=== PATIENT | male | born 1940 | race Hispanic/Latino ===

== ENCOUNTER → 2020-05-04 | Day surgery (SDC) | payer MEDICARE ==
[2020-05-01 14:18] LABS: BASOPHILS # (AUTO) 0.1 (0.0-0.1); BASOPHILS % 2.8 % (0.0-1.0); EOSINOPHILS # (AUTO) 0.1 (0.0-0.4); EOSINOPHILS % 2.6 % (0.0-6.0); HEMATOCRIT 30.4 % (38.2-49.6); LYMPHOCYTES # (AUTO) 1.3 (1.0-3.2); LYMPHOCYTES % 28.8 % (18.0-39.1); MEAN CORPUSCULAR HEMOGLOBIN 20.4 pg (28-32); MEAN CORPUSCULAR HGB CONC 29.6 g/dL (31-35); MEAN CORPUSCULAR VOLUME 68.9 fL (81-99); MONOCYTES # (AUTO) 0.7 (0.2-0.8); MONOCYTES % 15.3 % (4.4-11.3); NEUTROPHILS # (AUTO) 2.3 (2.1-6.9); NEUTROPHILS % 50.3 % (38.7-80.0); PLATELET COUNT 177 x10e3/uL (140-360); RED BLOOD COUNT 4.41 x10e6/uL (4.3-5.7); RED CELL DISTRIBUTION WIDTH 22.4 % (11.7-14.4)
[~2020-05-04] MED LIST: AMIODARONE HCL200 MG PO; AMLODIPINE BESY10 MG PO; ASPIRIN81 MG PO; COREG6.25 MG PO; HYDROCHLOROTH12.5 MG PO; LIDOCAINE HCL 2% LOCAL INJ 5 ML SDV VIAL INJ ONE; LISINOPRIL40 MG PO; METFORMIN HCL850 MG PO; OMEPRAZOLE40 MG PO; PLAVIX75 MG PO; PRAVACHOL40 MG PO; PROPOFOL IV EMULSION 10 MG/ML 20 ML VIAL ONE; TIMOPTIC 0.25%1 EACH OU; VENOFER100 MG/5 M PO; VITAMIN D310 MCG PO
[2020-05-04 09:22] VITALS: BP 117/56
== END | disposition home or self-care (01) ==
LOC: OR 06:31
PROVIDERS: ATTEND Internal Medicine Gastroenterology
DX: D50.0 Iron deficiency anemia secondary to blood loss (chronic) (principal); D12.2 Benign neoplasm of ascending colon; D12.5 Benign neoplasm of sigmoid colon; K29.50 Unspecified chronic gastritis without bleeding; K25.9 Gastric ulcer, unspecified as acute or chronic, without hemorrhage or perforation; K55.20 Angiodysplasia of colon without hemorrhage; K44.9 Diaphragmatic hernia without obstruction or gangrene; K21.00 Gastro-esophageal reflux disease with esophagitis, without bleeding; K64.8 Other hemorrhoids; Z71.3 Dietary counseling and surveillance; E66.3 Overweight; I48.91 Unspecified atrial fibrillation; I25.810 Atherosclerosis of coronary artery bypass graft(s) without angina pectoris; I10 Essential (primary) hypertension; E11.9 Type 2 diabetes mellitus without complications; Z01.812 Encounter for preprocedural laboratory examination; Z20.822 Contact with and (suspected) exposure to COVID-19; Z79.84 Long term (current) use of oral hypoglycemic drugs; Z68.28 Body mass index [BMI] 28.0-28.9, adult; Z95.1 Presence of aortocoronary bypass graft; Z95.5 Presence of coronary angioplasty implant and graft; Z87.891 Personal history of nicotine dependence; Z80.0 Family history of malignant neoplasm of digestive organs
CPT/HCPCS: 36415 ×2; 43239; 45385; 82948; 85025; J2001; J2704; U0002

== ENCOUNTER 2023-11-30 10:30 | Inpatient (IN) | payer MEDICARE ==
[~2023-11-30] VITALS: Ht 185.4 cm; Wt 86.7 kg
[~2023-11-30 10:30] MED LIST changes: +AUGMENTIN PO; -LIDOCAINE HCL 2% LOCAL INJ 5 ML SDV VIAL INJ ONE; -PROPOFOL IV EMULSION 10 MG/ML 20 ML VIAL ONE
[2023-11-30 11:06] VITALS: TEMP 97.9
[2023-11-30 11:21] LABS: BASOPHILS % 0.5 % (0.0-1.0); EOSINOPHILS % 0.2 % (0.0-6.0); HEMATOCRIT 37.4 % (38.2-49.6); HEMOGLOBIN 12.3 g/dL (14.0-18.0); LYMPHOCYTES # (AUTO) 0.7 (1.0-3.2); LYMPHOCYTES % 10.6 % (18.0-39.1); MEAN CORPUSCULAR HEMOGLOBIN 30.3 pg (28-32); MEAN CORPUSCULAR HGB CONC 32.9 g/dL (31-35); MEAN CORPUSCULAR VOLUME 92.1 fL (81-99); MONOCYTES # (AUTO) 0.7 (0.2-0.8); NEUTROPHILS # (AUTO) 5.1 (2.1-6.9); NEUTROPHILS % 77.8 % (38.7-80.0); PLATELET COUNT 135 x10e3/uL (140-360); RED BLOOD COUNT 4.06 x10e6/uL (4.3-5.7); RED CELL DISTRIBUTION WIDTH 13.9 % (11.7-14.4); WHITE BLOOD COUNT 6.49 x10e3/uL (4.8-10.8)
[2023-11-30 11:30] LABS: INR 1.07; PARTIAL THROMBOPLASTIN TIME 26.3 seconds (23.8-35.5); PROTHROMBIN TIME 14.4 seconds (11.9-14.5)
[2023-11-30 11:42] LABS: ALBUMIN 3.5 g/dL (3.5-5.0); ALBUMIN/GLOBULIN RATIO 1.1 (0.8-2.0); ANION GAP 14.1 mmol/L (8-16); BILIRUBIN,TOTAL 0.8 mg/dL (0.2-1.2); CALCIUM 8.6 mg/dL (8.4-10.2); CREATININE, SERUM 1.34 mg/dL (0.72-1.25); POTASSIUM 4.1 mmol/L (3.5-5.1); TOTAL PROTEIN 6.6 g/dL (6.5-8.1)
[2023-11-30 11:43] LABS: MAGNESIUM 1.8 MG/DL (1.3-2.1)
[2023-11-30 11:47] LABS: BILIRUBIN,URINE NEGATIVE (NEGATIVE); CLARITY,URINE HAZY (CLEAR); COLOR,URINE YELLOW (YELLOW); GLUCOSE, URINE NEGATIVE (NEGATIVE); KETONES,URINE NEGATIVE (NEGATIVE); LEUKOCYTE ESTERASE ,URINE NEGATIVE (NEGATIVE); NITRITE,URINE NEGATIVE (NEGATIVE); PH,URINE 6 (5 - 7); PROTEIN,URINE DIPSTICK TRACE (NEGATIVE); URINE UROBILINOGEN 1 mg/dL (0.2 - 1)
[2023-11-30 11:48] LABS: RBC,URINE 0-5 /HPF (0-5); WBC,URINE (MAN) 0-5 /HPF (0-5)
[2023-11-30 11:49] LABS: BACTERIA,URINE FEW /HPF; EPITHELIAL CELLS,URINE FEW /LPF
[2023-11-30 11:50] LABS: TROPONIN I 0.007 ng/mL (0-0.300)
[2023-11-30] MEDS ORDERED: IOPAMIDOL 370 MG/ML 100 ML INFUS..BTL INJ ONE (12:00)
[2023-11-30 12:22] LABS: SODIUM,URINE < 20 mmol/L
[2023-11-30] MEDS: SODIUM CHLORIDE 0.9% 1000ML 1,000 ML IV SCH (12:57)
[2023-11-30] MEDS ORDERED: ONDANSETRON HCL INJ 2MG/ML 2ML 2 MG/ML VIAL IV PRN (14:30)
[2023-11-30] MEDS: SODIUM CHLORIDE 0.9% 1000ML 1,000 ML IV ONE (15:30)
[2023-11-30 21:27] LABS: TROPONIN I 0.006 ng/mL (0-0.300)
[2023-11-30 21:32] VITALS: PULSE 42; RESP 16
[2023-11-30 21:36] VITALS: BP 133/60; PULSE 56; RESP 20; TEMP 97.5; O2SAT 99
[2023-11-30] MEDS ORDERED: METOPROLOL TART50 MG PO (22:02)
[2023-11-30 22:13] VITALS: BP 133/60; PULSE 56; RESP 20; TEMP 97.5; O2SAT 99
[2023-11-30 22:25] VITALS: BP 133/60; PULSE 56; RESP 20; TEMP 97.5; O2SAT 99
[2023-11-30] MEDS: TRAMADOL HCL 50 MG TAB PO PRN (22:53)
[2023-12-01 00:18] VITALS: BP 150/64; PULSE 62; RESP 18; TEMP 97.7; O2SAT 99
[2023-12-01 04:00] VITALS: BP 123/66; PULSE 70; RESP 20; TEMP 98.1; O2SAT 98
[2023-12-01 05:30] LABS: BASOPHILS % 0.6 % (0.0-1.0); EOSINOPHILS % 0.6 % (0.0-6.0); HEMATOCRIT 33.1 % (38.2-49.6); HEMOGLOBIN 11.2 g/dL (14.0-18.0); LYMPHOCYTES # (AUTO) 0.6 (1.0-3.2); LYMPHOCYTES % 13.3 % (18.0-39.1); MEAN CORPUSCULAR HEMOGLOBIN 30.4 pg (28-32); MEAN CORPUSCULAR HGB CONC 33.8 g/dL (31-35); MEAN CORPUSCULAR VOLUME 89.9 fL (81-99); MONOCYTES # (AUTO) 0.6 (0.2-0.8); MONOCYTES % 12.3 % (4.4-11.3); NEUTROPHILS # (AUTO) 3.5 (2.1-6.9); NEUTROPHILS % 72.2 % (38.7-80.0); PLATELET COUNT 133 x10e3/uL (140-360); RED BLOOD COUNT 3.68 x10e6/uL (4.3-5.7); RED CELL DISTRIBUTION WIDTH 13.9 % (11.7-14.4)
[2023-12-01 06:02] LABS: ANION GAP 11.7 mmol/L (8-16); BILIRUBIN,TOTAL 0.6 mg/dL (0.2-1.2); CALCIUM 8.2 mg/dL (8.4-10.2); CREATININE, SERUM 0.92 mg/dL (0.72-1.25); POTASSIUM 3.7 mmol/L (3.5-5.1); TOTAL PROTEIN 5.9 g/dL (6.5-8.1)
[2023-12-01 06:29] LABS: TROPONIN I 0.007 ng/mL (0-0.300)
[2023-12-01 09:28] VITALS: BP 133/68; PULSE 66; RESP 16; RESP 20; TEMP 97.9; O2SAT 98; O2SAT 99
[2023-12-01 11:40] VITALS: BP 129/67; PULSE 63; RESP 17; TEMP 97.8; O2SAT 100
[2023-12-01 16:39] VITALS: BP 146/64; PULSE 64; RESP 19; TEMP 98.1; O2SAT 98
[2023-12-01 20:00] VITALS: BP 113/58; PULSE 63; RESP 18; TEMP 98; O2SAT 99
[2023-12-01] MEDS: SIMVASTATIN 40 MG TAB PO SCH (22:18)
[2023-12-02] VITALS (9 sets, daily range): BP systolic 113–177; BP diastolic 58–82; PULSE 60–72; RESP 17–20; TEMP 97.3–98.2; O2SAT 96–100
[2023-12-02 06:02] LABS: BASOPHILS % 0.9 % (0.0-1.0); EOSINOPHILS % 0.7 % (0.0-6.0); HEMATOCRIT 35.1 % (38.2-49.6); HEMOGLOBIN 11.8 g/dL (14.0-18.0); LYMPHOCYTES # (AUTO) 0.7 (1.0-3.2); LYMPHOCYTES % 16.6 % (18.0-39.1); MEAN CORPUSCULAR HEMOGLOBIN 30.3 pg (28-32); MEAN CORPUSCULAR HGB CONC 33.6 g/dL (31-35); MONOCYTES # (AUTO) 0.6 (0.2-0.8); MONOCYTES % 13.6 % (4.4-11.3); NEUTROPHILS % 67.1 % (38.7-80.0); PLATELET COUNT 134 x10e3/uL (140-360); RED CELL DISTRIBUTION WIDTH 13.9 % (11.7-14.4); WHITE BLOOD COUNT 4.41 x10e3/uL (4.8-10.8)
[2023-12-02 06:32] LABS: ALBUMIN/GLOBULIN RATIO 1.1 (0.8-2.0); BILIRUBIN,TOTAL 0.4 mg/dL (0.2-1.2); CALCIUM 8.3 mg/dL (8.4-10.2); CREATININE, SERUM 0.78 mg/dL (0.72-1.25); MAGNESIUM 1.5 MG/DL (1.3-2.1); TOTAL PROTEIN 5.7 g/dL (6.5-8.1)
[2023-12-02] MEDS: ASPIRIN 81 MG CHEW TAB PO SCH (09:00)
[2023-12-02] MEDS: TIMOLOL MALEATE 0.25% OPTHLAMIC DROPS 5 ML OU SCH (09:00)
[2023-12-02] MEDS: CLOPIDOGREL BISULFATE 75 MG TAB PO SCH (09:00)
[2023-12-02] MEDS: METOPROLOL TARTRATE 50 MG TAB PO SCH (09:00)
[2023-12-02] MEDS: AMLODIPINE BESYLATE 10 MG TAB PO SCH (09:00)
[2023-12-02] MEDS: METFORMIN HCL 850 MG TAB PO SCH (09:01)
[2023-12-02] MEDS: AMIODARONE HCL 200 MG TAB PO SCH (09:02)
[2023-12-02] MEDS: ACETAMINOPHEN 325 MG TAB PO PRN (09:35)
[2023-12-02] MEDS: MUPIROCIN 2% OINT 22 GM TUBE TOP SCH (17:08)
[2023-12-02] MEDS: DOCUSATE SODIUM 100 MG CAP PO SCH (17:34)
[2023-12-02] MEDS: SODIUM CHLORIDE 1 GM TAB PO SCH (22:01)
[2023-12-03] VITALS (8 sets, daily range): BP systolic 140–162; BP diastolic 64–77; PULSE 57–76; RESP 18–20; TEMP 97.2–98.9; O2SAT 95–100
[2023-12-03 06:03] LABS: BASOPHILS # (AUTO) 0.1 (0.0-0.1); BASOPHILS % 1.1 % (0.0-1.0); EOSINOPHILS % 0.7 % (0.0-6.0); HEMATOCRIT 35.9 % (38.2-49.6); HEMOGLOBIN 12.1 g/dL (14.0-18.0); LYMPHOCYTES # (AUTO) 0.7 (1.0-3.2); LYMPHOCYTES % 16.3 % (18.0-39.1); MEAN CORPUSCULAR HEMOGLOBIN 30.3 pg (28-32); MEAN CORPUSCULAR HGB CONC 33.7 g/dL (31-35); MEAN CORPUSCULAR VOLUME 89.8 fL (81-99); MONOCYTES # (AUTO) 0.4 (0.2-0.8); MONOCYTES % 9.2 % (4.4-11.3); NEUTROPHILS # (AUTO) 3.1 (2.1-6.9); NEUTROPHILS % 71.3 % (38.7-80.0); PLATELET COUNT 157 x10e3/uL (140-360); RED CELL DISTRIBUTION WIDTH 13.9 % (11.7-14.4); WHITE BLOOD COUNT 4.36 x10e3/uL (4.8-10.8)
[2023-12-03 06:36] LABS: ANION GAP 11.2 mmol/L (8-16); BILIRUBIN,TOTAL 0.4 mg/dL (0.2-1.2); CALCIUM 8.7 mg/dL (8.4-10.2); CREATININE, SERUM 0.81 mg/dL (0.72-1.25); POTASSIUM 4.2 mmol/L (3.5-5.1)
[2023-12-03] MEDS: LISINOPRIL 20 MG TAB PO SCH (08:53)
[2023-12-03] MEDS ORDERED: ONDANSETRON HCL 4 MG ORAL DISINTEGRATING TAB PO PRN (14:00)
[2023-12-03] MEDS ORDERED: CEFTRIAXONE 1 GM VIAL IM SCH (18:00)
[2023-12-04] VITALS (8 sets, daily range): BP systolic 148–180; BP diastolic 63–72; PULSE 57–66; RESP 16–20; TEMP 97.2–98.7; O2SAT 99–100
[2023-12-04 07:31] LABS: ANION GAP 12.2 mmol/L (8-16); CALCIUM 8.5 mg/dL (8.4-10.2); CREATININE, SERUM 0.85 mg/dL (0.72-1.25); POTASSIUM 4.2 mmol/L (3.5-5.1)
[2023-12-05] VITALS: BP 159/71; PULSE 62; RESP 20; TEMP 97.8; O2SAT 99
[2023-12-05 04:00] VITALS: BP 171/67; PULSE 61; RESP 18; TEMP 97.7; O2SAT 100
[2023-12-05 07:21] LABS: ANION GAP 12.1 mmol/L (8-16); CALCIUM 8.8 mg/dL (8.4-10.2); CREATININE, SERUM 0.97 mg/dL (0.72-1.25); POTASSIUM 4.1 mmol/L (3.5-5.1)
[2023-12-05 08:20] VITALS: BP 109/71; PULSE 86; RESP 16; TEMP 97.8; O2SAT 100
[2023-12-05 08:25] VITALS: BP 156/76; PULSE 64; RESP 19; TEMP 97.8; O2SAT 100
[2023-12-05] MEDS: SODIUM CHLORIDE 1 GM TAB PO SCH ×2 (09:25→16:30)
[2023-12-05 12:28] VITALS: BP 155/75; PULSE 56; RESP 18; TEMP 97.3; O2SAT 100
== END 2023-12-05 19:00 | disposition home or self-care (01) | DRG 643 ==
LOC: ER 10:37 → ERHOLD 14:22 → MED/SURG3 21:19
PROVIDERS: ADMIT Family Medicine; ATTEND Family Medicine
DX: E22.2 Syndrome of inappropriate secretion of antidiuretic hormone (principal); J69.0 Pneumonitis due to inhalation of food and vomit; N17.9 Acute kidney failure, unspecified; E86.0 Dehydration; I11.0 Hypertensive heart disease with heart failure; E11.9 Type 2 diabetes mellitus without complications; I50.9 Heart failure, unspecified; I25.10 Atherosclerotic heart disease of native coronary artery without angina pectoris; R53.81 Other malaise; I48.91 Unspecified atrial fibrillation; R55 Syncope and collapse; Z79.82 Long term (current) use of aspirin; Z79.02 Long term (current) use of antithrombotics/antiplatelets; Z79.84 Long term (current) use of oral hypoglycemic drugs; Z95.1 Presence of aortocoronary bypass graft; I25.2 Old myocardial infarction; Z98.61 Coronary angioplasty status; Z91.81 History of falling; Z87.891 Personal history of nicotine dependence
CPT/HCPCS: 36415; 70450; 70551; 71045; 72125; 72192; 74177; 80048; 80053; 81001; 82533; 82550; 82947; 82948; 83735; 83880; 83935; 84295; 84300; 84443; 84484; 84520; 85025; 85610; 85730; 87040; 87086; 93005; 93880; 94799; 99252; 99284; J0696; J7030; J7050; Q9967